=== PATIENT | male | born 1950 | race Caucasian/White ===

== ENCOUNTER → 2019-09-21 | Outpatient (REF) | LOC: M LAB LCGH 19:34 | PROVIDERS: ATTEND Nurse Practitioner Family | DX: C44.519 Basal cell carcinoma of skin of other part of trunk (principal); C44.711 Basal cell carcinoma of skin of unspecified lower limb, including hip ==

== ENCOUNTER 2023-04-03 15:11 | Emergency (ER) | payer OTHER, MEDICARE ==
[~2023-04-03] VITALS: Ht 165.1 cm; Wt 90.0 kg
[2023-04-03 16:37] VITALS: BP 179/96; TEMP 97.9; O2SAT 99
[2023-04-03] MEDS ORDERED: BACITRACIN OINTMENT 30GM TUBE TOP ONE (18:35)
[2023-04-03] MEDS ORDERED: NORCO 5/325MG TABLET (HOME DOSE PACK) PO ONE (22:30)
[2023-04-03] MEDS ORDERED: NORCO, ANEXSIA 5/325MG TABLET (HYDROcodone/ACETAMINOPHEN) PO ONE (22:30)
[2023-04-03] MEDS ORDERED: HYDR-3713 PO (22:32)
== END 2023-04-03 23:10 | disposition home or self-care (01) ==
LOC: M ED 15:11
DX: S82.891A Other fracture of right lower leg, initial encounter for closed fracture (principal); S82.831A Other fracture of upper and lower end of right fibula, initial encounter for closed fracture; M19.049 Primary osteoarthritis, unspecified hand; S61.409A Unspecified open wound of unspecified hand, initial encounter; V27.49XA Other motorcycle driver injured in collision with fixed or stationary object in traffic accident, initial encounter; I25.10 Atherosclerotic heart disease of native coronary artery without angina pectoris; Z95.1 Presence of aortocoronary bypass graft

== ENCOUNTER → 2023-04-04 | Outpatient (CLI) | payer OTHER, MEDICARE ==
[~2023-04-04] MED LIST: HYDR-3713 PO
== END ==
LOC: M SOG 11:49
PROVIDERS: ATTEND Orthopaedic Surgery
DX: S82.61XA Displaced fracture of lateral malleolus of right fibula, initial encounter for closed fracture (principal); M79.89 Other specified soft tissue disorders; M19.071 Primary osteoarthritis, right ankle and foot; X58.XXXA Exposure to other specified factors, initial encounter; Y92.9 Unspecified place or not applicable; Y93.9 Activity, unspecified; Y99.9 Unspecified external cause status

== ENCOUNTER → 2023-04-23 | Outpatient (CLI) | payer OTHER, MEDICARE | LOC: M SOG 08:10 | PROVIDERS: ATTEND Orthopaedic Surgery | DX: S82.61XD Displaced fracture of lateral malleolus of right fibula, subsequent encounter for closed fracture with routine healing (principal) ==

== ENCOUNTER → 2023-05-23 | Outpatient (CLI) | payer OTHER, MEDICARE | LOC: M SOG 07:52 | PROVIDERS: ATTEND Orthopaedic Surgery | DX: M77.31 Calcaneal spur, right foot (principal); Z87.81 Personal history of (healed) traumatic fracture ==